=== PATIENT | male | born 1950 | race Caucasian/White ===

== ENCOUNTER 2019-03-11 13:27 | Emergency (ER) | payer MEDICARE, MEDICAID ==
[2019-03-11 13:45] VITALS: BP 145/82
[2019-03-11] MEDS ORDERED: Al Hydrox/Mg Hydrox/Simet LIQ* 30 ML UDC PO ONE (13:55)
--- NOTE | 2019-03-11 13:57 | UC ---
Throat Pain/Nasal Terrence HPI - HPI Summary HPI Summary: patient reports ST for 3-4 days. hurts to swallow but is not choking on food. pain is worse at night when he lies down, coughing makes it worse as well he has tried no meds thus far for ST - History of Current Complaint Chief Complaint: UCGeneralIllness Stated Complaint: ST/SOB Time Seen by Provider: 03/11/19 13:34 Hx Obtained From: Patient Onset/Duration: Gradual Onset Severity: Moderate Pain Intensity: 5 Cough: Productive - states he has chronic cough from COPD Associated Signs & Symptoms: Positive: Negative - Allergies/Home Medications Allergies/Adverse Reactions: Allergies Allergy/AdvReac Type Severity Reaction Status Date / Time No Known Allergies Allergy Verified 03/11/19 13:31 Home Medications: Home Medications Budesonide/Formote 160/4.5(NF) [Symbicort 160/4.5 (NF)] 03/11/19 [History Confirmed 03/11/19] PMH/Surg Hx/FS Hx/Imm Hx Previously Healthy: Yes Respiratory History: COPD - Surgical History Surgical History: Yes Surgery Procedure, Year, and Place: 2011 C4-C6 SURGERY, [id number] CYSTOSCOPY, [facility] TUNNEL SX - Family History Known Family History: Positive: Hypertension - Social History Occupation: Unemployed Alcohol Use: None Substance Use Type: None Smoking Status (MU): Former Smoker Type: Cigarettes - Immunization History Most Recent Influenza Vaccination: 2012 Most Recent Tetanus Shot: UNSURE Most Recent Pneumonia Vaccination: 2011 Review of Systems All Other Systems Reviewed And Are Negative: Yes Constitutional: Positive: Negative. Negative: Fever, Chills Skin: Positive: Negative. Negative: Rash ENT: Positive: Sore Throat. Negative: Ear Ache, Nasal Discharge Respiratory: Positive: Cough Cardiovascular: Positive: Negative. Negative: Chest Pain Gastrointestinal: Positive: Negative. Negative: Vomiting, Nausea Neurological: Positive: Negative. Negative: Headache Psychological: Positive: Negative Is Patient Immunocompromised?: No Physical Exam Triage Information Reviewed: Yes Appearance: Well-Appearing, No Pain Distress, Thin Vital Signs: Initial Vital Signs Temp 99.9 F 03/11/19 13:33 Pulse 110 03/11/19 13:33 Resp 20 03/11/19 13:33 BP 145/82 03/11/19 13:33 Pulse Ox 87 03/11/19 13:33 Vital Signs Reviewed: Yes Eye Exam: Normal Eyes: Positive: Conjunctiva Clear Neck exam: Normal Neck: Positive: Supple, Nontender, No Lymphadenopathy. Negative: Nuchal Rigidity Respiratory: Positive: Lungs clear, Other: - mildly decreased bialteral lung sounds - using portable 02 @ 2L NC Neurological Exam: Normal Neurological: Positive: Alert Psychological Exam: Normal Skin Exam: Normal Skin: Negative: Rashes Re-Evaluation - Re-Evaluation First Eval Re-Evaluation Time: 14:20 - patient states his ST and pain swallowing has resolved after maalox Change: Improved Throat Pain/Nasal Course/Dx - Course Course Of Treatment: patient able to swallow water when asked to do so, no perceptible difficulty, no choking states it burned " a little going down" - Differential Dx/Diagnosis Differential Diagnosis/HQI/PQRI: Foreign Body, Pharyngitis, Tonsillitis, URI, Other - GERD Provider Diagnosis: Esophagitis Discharge ED - Sign-Out/Discharge Documenting (check all that apply): Patient Departure All imaging exams completed and their final reports reviewed: No Studies - Discharge Plan Condition: Improved Disposition: HOME Patient Education Materials: Esophagitis (ED) Referrals: Sregey Martini MD [Primary Care Provider] - 2 Days (for recheck esophagitis and elevated blood pressure) Additional Instructions: eat a bland diet drink plenty of water use Maalox 1 tablespoon every 6 hours for 3-5 days report to emergency room if you cannot swallow food or fluids or are choking - Billing Disposition and Condition Condition: IMPROVED Disposition: Home - Attestation Statements Provider Attestation: Per institutional requirements, I have reviewed the chart, however, I was not consulted specifically or made aware of this patient by the midlevel provider. I did not personally evaluate, interact with , or disposition this patient.
== END 2019-03-11 14:47 | disposition home or self-care (01) ==
LOC: UCEAST 13:27
DX: K20.9 Esophagitis, unspecified (principal); J44.9 Chronic obstructive pulmonary disease, unspecified; Z87.891 Personal history of nicotine dependence
CPT/HCPCS: 99212; A9270-GY; G0463

== ENCOUNTER 2023-03-09 15:58 | Observation (INO) ==
[2023-03-09 16:54] LABS: ABS Lymphocytes 0.5 10^3/uL (1.0-4.8); ABS Monocytes 0.3 10^3/uL (0.0-1.1); ABS Neutrophils 2.5 10^3/uL (1.5-7.6); ABS Nucleated RBC 0.02 10^3/ul; Eosinophil % 0.4 %; Hematocrit 43.5 % (38-53); Hemoglobin 14.7 g/dL (13.2-16.3); Lymphocyte % 15.3 %; Mean Corpuscular Hemoglobin 31.1 pg (27-33); Mean Corpuscular Hgb Conc 33.7 g/dL (31-36); Mean Corpuscular Volume 92.3 fL (80-97); Mean Platelet Volume 7.7 fL (7.5-11.2); Nucleated Red Blood Cells % 0.5 /100 WBC (0.0-0.4); Platelet Count 142 10^3/uL (150-450); Red Blood Count 4.71 10^6/uL (4.06-5.63); Red Cell Distribution Width 14.8 % (12-17); White Blood Count 3.4 10^3/uL (3.6-10.2)
[2023-03-09 17:00] LABS: INR 1.17 (0.83-1.13)
[2023-03-09 17:16] LABS: High Sens Troponin Baseline 6 pg/mL (<20)
[2023-03-09 17:43] LABS: Albumin 3.1 g/dL (3.2-5.2); CO2 Carbon Dioxide 27 mmol/L (22-32); Calcium 7.6 mg/dL (8.6-10.3); Chloride 102 mmol/L (101-111); Sodium 136 mmol/L (135-145)
[2023-03-09 17:49] LABS: ALT 10 U/L (7-52); Albumin/Globulin Ratio 1.1 (1-3); Alkaline Phosphatase 64 U/L (35-149); Blood Urea Nitrogen 10 mg/dL (6-24); C Reactive Protein 6.89 mg/L (<8.01); Creatinine, Serum 0.82 mg/dL (0.67-1.17); Globulin 2.9 g/dL (2-4); Glucose 106 mg/dL (70-100); eGFR CKD-EPI 94.5 (>60)
[2023-03-09] MEDS ORDERED: Iohexol 350 (CONTRAST) 500 ML MDV IV ONE (17:54)
[2023-03-09 17:56] LABS: Anion Gap 7 mmol/L (2-16)
[2023-03-09 18:34] LABS: High Sensitivity Troponin 1 Hr 10 pg/mL (<20)
[2023-03-09 19:24] LABS: Potassium Redraw 4.2 mmol/L (3.5-5.0)
[2023-03-09 20:36] LABS: ABS Eosinophils 0.1 10^3/uL (0.0-0.5); ABS Lymphocytes 0.8 10^3/uL (1.0-4.8); ABS Monocytes 0.4 10^3/uL (0.0-1.1); ABS Neutrophils 2.3 10^3/uL (1.5-7.6); ABS Nucleated RBC 0.01 10^3/ul; Eosinophil % 1.8 %; Hematocrit 40.9 % (38-53); Hemoglobin 13.6 g/dL (13.2-16.3); Lymphocyte % 22.6 %; Mean Corpuscular Hemoglobin 30.8 pg (27-33); Mean Corpuscular Hgb Conc 33.3 g/dL (31-36); Mean Corpuscular Volume 92.6 fL (80-97); Mean Platelet Volume 7.2 fL (7.5-11.2); Nucleated Red Blood Cells % 0.3 /100 WBC (0.0-0.4); Platelet Count 132 10^3/uL (150-450); Red Blood Count 4.42 10^6/uL (4.06-5.63); Red Cell Distribution Width 14.7 % (12-17); White Blood Count 3.6 10^3/uL (3.6-10.2)
[2023-03-09] MEDS: Heparin DRIP 25,000 UNITS BAG 25,000 UNITS/500 ML BAG IV SCH (20:53)
[2023-03-09] MEDS ORDERED: Heparin 5000 UNITS/ML 1 mL VIAL IV SCH (21:00)
[2023-03-09 21:02] LABS: Creatinine, Serum 0.76 mg/dL (0.67-1.17); eGFR CKD-EPI 96.7 (>60)
[2023-03-09] MEDS ORDERED: Furosemide 40 mg/4 ml IV VIAL IV ONE (23:51)
[2023-03-10] MEDS ORDERED: Albuterol HFA INHALER 8 gm MDI INH PRN (00:27)
[2023-03-10 01:36] LABS: Erythrocyte Sed Rate 5 mm/Hr (0-19)
[2023-03-10 04:42] LABS: ABS Eosinophils 0.2 10^3/uL (0.0-0.5); ABS Lymphocytes 0.8 10^3/uL (1.0-4.8); ABS Monocytes 0.5 10^3/uL (0.0-1.1); ABS Nucleated RBC 0.02 10^3/ul; Eosinophil % 3.8 %; Hematocrit 44.4 % (38-53); Hemoglobin 15.3 g/dL (13.2-16.3); Lymphocyte % 17.8 %; Mean Corpuscular Hemoglobin 31.5 pg (27-33); Mean Corpuscular Hgb Conc 34.5 g/dL (31-36); Mean Corpuscular Volume 91.3 fL (80-97); Mean Platelet Volume 7.2 fL (7.5-11.2); Nucleated Red Blood Cells % 0.5 /100 WBC (0.0-0.4); Platelet Count 151 10^3/uL (150-450); Red Blood Count 4.86 10^6/uL (4.06-5.63); White Blood Count 4.5 10^3/uL (3.6-10.2)
[2023-03-10 04:56] LABS: Calcium 8.6 mg/dL (8.6-10.3); Creatinine, Serum 0.98 mg/dL (0.67-1.17); Potassium 3.5 mmol/L (3.5-5.0)
[2023-03-10] MEDS: Mometasone/Formoter 200/5 MDI INH SCH ×2 (08:47→19:39)
[2023-03-10] MEDS: SPIRIVA Respimat (tiotropium) 2.5 mcg/inh Inhaler INH SCH (12:01)
[2023-03-10] MEDS: Heparin DRIP 25,000 UNITS BAG 25,000 UNITS/500 ML BAG IV SCH (20:01)
[2023-03-11 06:32] LABS: ABS Eosinophils 0.2 10^3/uL (0.0-0.5); ABS Lymphocytes 0.7 10^3/uL (1.0-4.8); ABS Monocytes 0.5 10^3/uL (0.0-1.1); ABS Neutrophils 2.7 10^3/uL (1.5-7.6); ABS Nucleated RBC 0.01 10^3/ul; Eosinophil % 5.2 %; Hematocrit 42.2 % (38-53); Hemoglobin 14.5 g/dL (13.2-16.3); Lymphocyte % 17.3 %; Mean Corpuscular Hemoglobin 31.6 pg (27-33); Mean Corpuscular Hgb Conc 34.4 g/dL (31-36); Mean Corpuscular Volume 91.8 fL (80-97); Mean Platelet Volume 7.3 fL (7.5-11.2); Nucleated Red Blood Cells % 0.3 /100 WBC (0.0-0.4); Platelet Count 141 10^3/uL (150-450); Red Cell Distribution Width 14.9 % (12-17); White Blood Count 4.1 10^3/uL (3.6-10.2)
[2023-03-11 07:00] LABS: Creatinine, Serum 0.9 mg/dL (0.67-1.17); eGFR CKD-EPI 91.9 (>60)
[2023-03-11] MEDS: SPIRIVA Respimat (tiotropium) 2.5 mcg/inh Inhaler INH SCH (07:27)
[2023-03-11] MEDS: Mometasone/Formoter 200/5 MDI INH SCH ×2 (07:27→19:14)
[2023-03-12 06:16] LABS: ABS Eosinophils 0.2 10^3/uL (0.0-0.5); ABS Lymphocytes 0.7 10^3/uL (1.0-4.8); ABS Monocytes 0.4 10^3/uL (0.0-1.1); ABS Neutrophils 2.2 10^3/uL (1.5-7.6); ABS Nucleated RBC 0.02 10^3/ul; Eosinophil % 5.3 %; Hematocrit 41.6 % (38-53); Hemoglobin 14.3 g/dL (13.2-16.3); Lymphocyte % 19.4 %; Mean Corpuscular Hemoglobin 31.3 pg (27-33); Mean Corpuscular Hgb Conc 34.3 g/dL (31-36); Mean Corpuscular Volume 91.3 fL (80-97); Mean Platelet Volume 7.2 fL (7.5-11.2); Nucleated Red Blood Cells % 0.6 /100 WBC (0.0-0.4); Platelet Count 131 10^3/uL (150-450); Red Blood Count 4.56 10^6/uL (4.06-5.63); Red Cell Distribution Width 14.6 % (12-17); White Blood Count 3.5 10^3/uL (3.6-10.2)
[2023-03-12 06:32] LABS: Calcium 8.7 mg/dL (8.6-10.3); Creatinine, Serum 0.91 mg/dL (0.67-1.17); Magnesium 2.1 mg/dL (1.9-2.7); Potassium 4.3 mmol/L (3.5-5.0); eGFR CKD-EPI 90.7 (>60)
[2023-03-12] MEDS: SPIRIVA Respimat (tiotropium) 2.5 mcg/inh Inhaler INH SCH (07:30)
[2023-03-12] MEDS: Mometasone/Formoter 200/5 MDI INH SCH (07:30)
[2023-03-12 09:33] VITALS: BP 111/66
[2023-03-12] MEDS ORDERED: Albuterol/Ipratropium NEB.SOL (2.5/0.5 MG) 3 ML NEB.SOLN INH ONE (11:19)
== END 2023-03-12 13:35 | disposition home or self-care (01) ==
LOC: ED 15:58 → EDHOLD 15:58 → SUATTDRO 20:51 → MED 03-10 14:56
PROVIDERS: ADMIT Student in an Organized Health Care Education/Training Program; ATTEND Internal Medicine

== ENCOUNTER 2023-03-22 16:57 | Inpatient (IN) ==
[2023-03-22 17:25] LABS: Rapid Strep Molecular Negative (Negative)
[2023-03-22 20:42] LABS: ABS Lymphocytes 0.6 10^3/uL (1.0-4.8); ABS Monocytes 0.6 10^3/uL (0.0-1.1); ABS Neutrophils 8.4 10^3/uL (1.5-7.6); ABS Nucleated RBC 0.01 10^3/ul; Hematocrit 47.8 % (38-53); Hemoglobin 16.1 g/dL (13.2-16.3); Lymphocyte % 6.5 %; Mean Corpuscular Hemoglobin 31.4 pg (27-33); Mean Corpuscular Hgb Conc 33.7 g/dL (31-36); Mean Corpuscular Volume 93.3 fL (80-97); Mean Platelet Volume 7.8 fL (7.5-11.2); Nucleated Red Blood Cells % 0.1 /100 WBC (0.0-0.4); Platelet Count 155 10^3/uL (150-450); Red Blood Count 5.13 10^6/uL (4.06-5.63); Red Cell Distribution Width 15.1 % (12-17); White Blood Count 9.6 10^3/uL (3.6-10.2)
[2023-03-22 20:58] LABS: Albumin 3.5 g/dL (3.2-5.2); Calcium 8.8 mg/dL (8.6-10.3); Potassium 4.1 mmol/L (3.5-5.0); Total Bilirubin 1.2 mg/dL (0.2-1.0)
[2023-03-22 21:03] LABS: INR 1.9 (0.83-1.13)
[2023-03-22 21:04] LABS: Albumin/Globulin Ratio 0.9 (1-3); C Reactive Protein 113.47 mg/L (<8.01); Creatinine, Serum 0.96 mg/dL (0.67-1.17); Globulin 3.8 g/dL (2-4); Total Protein 7.3 g/dL (6.4-8.9)
[2023-03-22 23:32] LABS: High Sensitivity Troponin 1 Hr 11 pg/mL (<20)
[2023-03-23] MEDS ORDERED: Lactated Ringers 1000 ml BAG 1,000 ML IV ONE ×2 (00:11→12:38)
[2023-03-23] MEDS ORDERED: Iohexol 300 (CONTRAST) 10 ML SDV IV ONE (03:18)
[2023-03-23] MEDS ORDERED: Vancomycin 1,000 MG in NS 0.9% 250 ml 250 ML IVPB ONE (04:53)
[2023-03-23] MEDS ORDERED: Piperacillin/Tazobac 3.375 BAG 3.375 GM/100 ML BAG IV ONE (04:53)
[2023-03-23] MEDS ORDERED: Zosyn per Pharmacy NOTE FOLLOW UP SCH (12:00)
[2023-03-23] MEDS ORDERED: Acetaminophen IV 1 GM/100ML 1,000 MG/100 ML BAG IV PRN (12:36)
[2023-03-23] MEDS ORDERED: Polyethylene Glycol 3350 17 GM PACKET PO PRN (12:37)
[2023-03-23] MEDS ORDERED: ZOSYN 3.375 GM Q8H per EXTENDED INFUSION IV SCH (13:00)
[2023-03-23] MEDS ORDERED: Azithromycin 500 mg/250 ml NS 500 MG/250 ML BAG IVPB SCH (14:30)
[2023-03-23] MEDS: Mometasone/Formoter 200/5 MDI INH SCH (19:16)
[2023-03-23] MEDS: SPIRIVA Respimat (tiotropium) 2.5 mcg/inh Inhaler INH SCH (19:17)
[2023-03-23] MEDS ORDERED: Enoxaparin 60 MG/0.6 ML SYR SUBCUT ONE (21:45)
[2023-03-24] MEDS: ZOSYN 3.375 GM Q8H per EXTENDED INFUSION IV SCH ×3 (01:51→17:15)
[2023-03-24 06:05] LABS: ABS Lymphocytes 0.7 10^3/uL (1.0-4.8); ABS Monocytes 0.6 10^3/uL (0.0-1.1); ABS Neutrophils 8.1 10^3/uL (1.5-7.6); ABS Nucleated RBC 0.01 10^3/ul; Eosinophil % 0.1 %; Hematocrit 43.8 % (38-53); Hemoglobin 14.8 g/dL (13.2-16.3); Lymphocyte % 7.2 %; Mean Corpuscular Hemoglobin 31.6 pg (27-33); Mean Corpuscular Hgb Conc 33.8 g/dL (31-36); Mean Corpuscular Volume 93.4 fL (80-97); Mean Platelet Volume 8.1 fL (7.5-11.2); Nucleated Red Blood Cells % 0.1 /100 WBC (0.0-0.4); Platelet Count 114 10^3/uL (150-450); Red Blood Count 4.69 10^6/uL (4.06-5.63); Red Cell Distribution Width 14.7 % (12-17); White Blood Count 9.4 10^3/uL (3.6-10.2)
[2023-03-24 06:21] LABS: Calcium 8.3 mg/dL (8.6-10.3); Creatinine, Serum 0.78 mg/dL (0.67-1.17); Magnesium 2.1 mg/dL (1.9-2.7); eGFR CKD-EPI 95.9 (>60)
[2023-03-24] MEDS: Mometasone/Formoter 200/5 MDI INH SCH ×2 (07:32→21:31)
[2023-03-24] MEDS: SPIRIVA Respimat (tiotropium) 2.5 mcg/inh Inhaler INH SCH (07:32)
[2023-03-24] MEDS: Enoxaparin 60 MG/0.6 ML SYR SUBCUT SCH ×2 (11:59→22:11)
[2023-03-24] MEDS: Azithromycin 500 mg/250 ml NS 500 MG/250 ML BAG IVPB SCH (17:15)
[2023-03-24] MEDS: Lactated Ringers 1000 ml BAG 1,000 ML IV SCH (22:05)
[2023-03-25] MEDS: ZOSYN 3.375 GM Q8H per EXTENDED INFUSION IV SCH ×3 (01:45→16:42)
[2023-03-25] MEDS: Lactated Ringers 1000 ml BAG 1,000 ML IV SCH ×2 (08:12→17:51)
[2023-03-25] MEDS: SPIRIVA Respimat (tiotropium) 2.5 mcg/inh Inhaler INH SCH (08:21)
[2023-03-25] MEDS: Mometasone/Formoter 200/5 MDI INH SCH ×2 (08:21→19:15)
[2023-03-25] MEDS: Enoxaparin 60 MG/0.6 ML SYR SUBCUT SCH ×2 (11:39→21:43)
[2023-03-25] MEDS: Azithromycin 500 mg/250 ml NS 500 MG/250 ML BAG IVPB SCH (17:53)
[2023-03-26] MEDS: ZOSYN 3.375 GM Q8H per EXTENDED INFUSION IV SCH ×3 (01:13→16:42)
[2023-03-26] MEDS: Lactated Ringers 1000 ml BAG 1,000 ML IV SCH ×2 (04:55→14:14)
[2023-03-26 06:54] LABS: ABS Lymphocytes 0.6 10^3/uL (1.0-4.8); ABS Monocytes 0.3 10^3/uL (0.0-1.1); ABS Neutrophils 3.6 10^3/uL (1.5-7.6); ABS Nucleated RBC 0.02 10^3/ul; Eosinophil % 0.6 %; Hemoglobin 15.1 g/dL (13.2-16.3); Lymphocyte % 12.8 %; Mean Corpuscular Hemoglobin 31.4 pg (27-33); Mean Corpuscular Hgb Conc 33.5 g/dL (31-36); Mean Corpuscular Volume 93.6 fL (80-97); Mean Platelet Volume 8.4 fL (7.5-11.2); Nucleated Red Blood Cells % 0.4 /100 WBC (0.0-0.4); Platelet Count 116 10^3/uL (150-450); Red Blood Count 4.81 10^6/uL (4.06-5.63); Red Cell Distribution Width 14.5 % (12-17); White Blood Count 4.6 10^3/uL (3.6-10.2)
[2023-03-26 07:10] LABS: Calcium 8.1 mg/dL (8.6-10.3); Creatinine, Serum 0.76 mg/dL (0.67-1.17); Potassium 3.7 mmol/L (3.5-5.0); eGFR CKD-EPI 96.7 (>60)
[2023-03-26] MEDS: Mometasone/Formoter 200/5 MDI INH SCH ×2 (07:36→19:08)
[2023-03-26] MEDS: SPIRIVA Respimat (tiotropium) 2.5 mcg/inh Inhaler INH SCH (07:37)
[2023-03-26] MEDS: Enoxaparin 60 MG/0.6 ML SYR SUBCUT SCH ×2 (08:00→21:31)
[2023-03-27] MEDS: Lactated Ringers 1000 ml BAG 1,000 ML IV SCH ×2 (01:02→11:11)
[2023-03-27] MEDS: ZOSYN 3.375 GM Q8H per EXTENDED INFUSION IV SCH ×3 (01:04→17:03)
[2023-03-27] MEDS: Mometasone/Formoter 200/5 MDI INH SCH ×2 (08:00→18:48)
[2023-03-27] MEDS: SPIRIVA Respimat (tiotropium) 2.5 mcg/inh Inhaler INH SCH (08:01)
[2023-03-27 08:43] LABS: ALT 8 U/L (7-52); AST 19 U/L (13-39); Albumin 2.8 g/dL (3.2-5.2); Albumin/Globulin Ratio 0.8 (1-3); Alkaline Phosphatase 69 U/L (35-149); Anion Gap 7 mmol/L (2-16); Blood Urea Nitrogen 16 mg/dL (6-24); CO2 Carbon Dioxide 34 mmol/L (22-32); Calcium 7.8 mg/dL (8.6-10.3); Chloride 101 mmol/L (101-111); Cholesterol 109 mg/dL; Globulin 3.3 g/dL (2-4); Glucose 77 mg/dL (70-100); Magnesium 1.9 mg/dL (1.9-2.7); Phosphorus 2.5 mg/dL (2.5-5.0); Potassium 3.9 mmol/L (3.5-5.0); Sodium 142 mmol/L (135-145); Total Protein 6.1 g/dL (6.4-8.9); Triglycerides 107 mg/dL; eGFR CKD-EPI 99.1 (>60)
[2023-03-27] MEDS: Enoxaparin 60 MG/0.6 ML SYR SUBCUT SCH ×2 (09:10→21:40)
[2023-03-27 09:27] LABS: Prealbumin < 3 mg/dL (18-38)
[2023-03-27 09:37] LABS: ABS Lymphocytes 0.7 10^3/uL (1.0-4.8); ABS Monocytes 0.3 10^3/uL (0.0-1.1); ABS Nucleated RBC 0.01 10^3/ul; Eosinophil % 0.6 %; Hematocrit 45.3 % (38-53); Hemoglobin 15.2 g/dL (13.2-16.3); Lymphocyte % 16.7 %; Mean Corpuscular Hemoglobin 31.4 pg (27-33); Mean Corpuscular Hgb Conc 33.7 g/dL (31-36); Mean Corpuscular Volume 93.2 fL (80-97); Mean Platelet Volume 8.6 fL (7.5-11.2); Nucleated Red Blood Cells % 0.1 /100 WBC (0.0-0.4); Platelet Count 117 10^3/uL (150-450); Red Blood Count 4.86 10^6/uL (4.06-5.63); Red Cell Distribution Width 14.4 % (12-17)
[2023-03-27] MEDS ORDERED: PPN (PERIPHERAL) 24 HR with D10W 1000 ml BAG 1,000 ML, Amino Acid Infusion 10% 850 ML, ... IV SCH (17:00)
[2023-03-28] MEDS: ZOSYN 3.375 GM Q8H per EXTENDED INFUSION IV SCH ×2 (00:56→13:27)
[2023-03-28 06:15] LABS: Mean Corpuscular Hemoglobin 31.1 pg (27-33); Mean Corpuscular Hgb Conc 34.2 g/dL (31-36); Mean Corpuscular Volume 91.1 fL (80-97); Red Blood Count 4.82 10^6/uL (4.06-5.63); Red Cell Distribution Width 14.6 % (12-17); White Blood Count 3.7 10^3/uL (3.6-10.2)
[2023-03-28 06:29] LABS: ABS Eosinophils 0.1 10^3/uL (0.0-0.5); ABS Lymphocytes 0.6 10^3/uL (1.0-4.8); ABS Monocytes 0.3 10^3/uL (0.0-1.1); ABS Neutrophils 2.8 10^3/uL (1.5-7.6); ABS Nucleated RBC 0.01 10^3/ul; ALT 10 U/L (7-52); AST 17 U/L (13-39); Albumin 2.7 g/dL (3.2-5.2); Albumin/Globulin Ratio 0.8 (1-3); Alkaline Phosphatase 61 U/L (35-149); Blood Urea Nitrogen 17 mg/dL (6-24); Calcium 8.2 mg/dL (8.6-10.3); Chloride 98 mmol/L (101-111); Cholesterol 108 mg/dL; Creatinine, Serum 0.66 mg/dL (0.67-1.17); Globulin 3.3 g/dL (2-4); Glucose 121 mg/dL (70-100); Lymphocyte % 15.6 %; Mean Platelet Volume 7.9 fL (7.5-11.2); Nucleated Red Blood Cells % 0.3 /100 WBC (0.0-0.4); Platelet Count 86 10^3/uL (150-450); Potassium 3.3 mmol/L (3.5-5.0); Sodium 139 mmol/L (135-145); Triglycerides 139 mg/dL; eGFR CKD-EPI 100.9 (>60)
[2023-03-28 06:32] LABS: CO2 Carbon Dioxide 41 mmol/L (22-32)
[2023-03-28 06:38] LABS: Prealbumin < 3 mg/dL (18-38)
[2023-03-28] MEDS: Mometasone/Formoter 200/5 MDI INH SCH ×2 (07:22→20:10)
[2023-03-28] MEDS: SPIRIVA Respimat (tiotropium) 2.5 mcg/inh Inhaler INH SCH (07:23)
[2023-03-28] MEDS ORDERED: PPN (PERIPHERAL) 24 HR with D10W 1000 ml BAG 1,000 ML, Amino Acid Infusion 10% 850 ML, ... IV SCH (17:00)
[2023-03-28] MEDS ORDERED: Dextrose 50% Syringe 50 ml 25 GM/50 ML SYRINGE IV PUSH PRN (17:26)
[2023-03-28] MEDS: Enoxaparin 60 MG/0.6 ML SYR SUBCUT SCH ×2 (17:39→22:36)
[2023-03-28] MEDS: cefTRIAXone 1 gm/50 mL D5W 1 GM/50 ML BAG IV SCH (22:35)
[2023-03-29 06:28] LABS: ABS Eosinophils 0.1 10^3/uL (0.0-0.5); ABS Lymphocytes 0.5 10^3/uL (1.0-4.8); ABS Monocytes 0.3 10^3/uL (0.0-1.1); ABS Neutrophils 3.2 10^3/uL (1.5-7.6); ABS Nucleated RBC 0.02 10^3/ul; Eosinophil % 2.2 %; Hematocrit 43.6 % (38-53); Lymphocyte % 11.4 %; Mean Corpuscular Hemoglobin 31.3 pg (27-33); Mean Corpuscular Hgb Conc 34.4 g/dL (31-36); Mean Corpuscular Volume 90.9 fL (80-97); Mean Platelet Volume 8.2 fL (7.5-11.2); Nucleated Red Blood Cells % 0.4 /100 WBC (0.0-0.4); Platelet Count 70 10^3/uL (150-450); Red Cell Distribution Width 13.8 % (12-17); White Blood Count 4.1 10^3/uL (3.6-10.2)
[2023-03-29 06:42] LABS: Albumin 2.7 g/dL (3.2-5.2); Albumin/Globulin Ratio 0.9 (1-3); Calcium 7.9 mg/dL (8.6-10.3); Creatinine, Serum 0.56 mg/dL (0.67-1.17); Globulin 3.1 g/dL (2-4); Magnesium 1.9 mg/dL (1.9-2.7); Phosphorus 1.7 mg/dL (2.5-5.0); Potassium 3.5 mmol/L (3.5-5.0); Total Bilirubin 0.5 mg/dL (0.2-1.0); Total Protein 5.8 g/dL (6.4-8.9)
[2023-03-29] MEDS: SPIRIVA Respimat (tiotropium) 2.5 mcg/inh Inhaler INH SCH (08:45)
[2023-03-29] MEDS: Mometasone/Formoter 200/5 MDI INH SCH ×2 (08:46→19:49)
[2023-03-29] MEDS: Enoxaparin 60 MG/0.6 ML SYR SUBCUT SCH (10:41)
[2023-03-29] MEDS ORDERED: D10W IV SCH (17:00)
[2023-03-29] MEDS ORDERED: AMINO ACID INFUSION IV SCH (17:00)
[2023-03-29] MEDS ORDERED: [UNRECOGNIZED DRUG - OTHER] IV SCH (17:00)
[2023-03-29] MEDS ORDERED: PPN IV SCH (17:00)
[2023-03-29] MEDS ORDERED: Potassium Phosphate IV 5 MMOL in NS 0.9% 250 ml 250 ML IVPB ONE (18:23)
[2023-03-29] MEDS: cefTRIAXone 1 gm/50 mL D5W 1 GM/50 ML BAG IV SCH (23:29)
[2023-03-30 06:47] LABS: High Sensitivity Troponin 1 Hr 12 pg/mL (<20)
[2023-03-30 07:09] LABS: Albumin 2.7 g/dL (3.2-5.2); Calcium 7.6 mg/dL (8.6-10.3); Creatinine, Serum 0.61 mg/dL (0.67-1.17); Globulin 2.7 g/dL (2-4); Magnesium 1.9 mg/dL (1.9-2.7); Phosphorus 2.3 mg/dL (2.5-5.0); Potassium 3.5 mmol/L (3.5-5.0); Total Bilirubin 0.7 mg/dL (0.2-1.0); Total Protein 5.4 g/dL (6.4-8.9); eGFR CKD-EPI 103.3 (>60)
[2023-03-30] MEDS: SPIRIVA Respimat (tiotropium) 2.5 mcg/inh Inhaler INH SCH (07:44)
[2023-03-30] MEDS: Mometasone/Formoter 200/5 MDI INH SCH ×2 (07:44→19:55)
[2023-03-30 07:51] LABS: ABS Eosinophils 0.1 10^3/uL (0.0-0.5); ABS Lymphocytes 0.6 10^3/uL (1.0-4.8); ABS Monocytes 0.4 10^3/uL (0.0-1.1); ABS Neutrophils 2.9 10^3/uL (1.5-7.6); ABS Nucleated RBC 0.01 10^3/ul; Eosinophil % 2.4 %; Hematocrit 45.6 % (38-53); Hemoglobin 15.5 g/dL (13.2-16.3); Lymphocyte % 15.8 %; Mean Corpuscular Volume 91.2 fL (80-97); Mean Platelet Volume 8.9 fL (7.5-11.2); Nucleated Red Blood Cells % 0.3 /100 WBC (0.0-0.4); Platelet Count 84 10^3/uL (150-450); Red Cell Distribution Width 14.3 % (12-17)
[2023-03-30 13:12] VITALS: BP 121/70
[2023-03-30] MEDS ORDERED: Morphine ORAL CONCENTRATE 5 MG/0.25 ML ORAL.SYRIN SL PRN (15:46)
[2023-03-31] MEDS: SPIRIVA Respimat (tiotropium) 2.5 mcg/inh Inhaler INH SCH (07:44)
[2023-03-31] MEDS: Mometasone/Formoter 200/5 MDI INH SCH ×2 (07:45→19:33)
[2023-04-01 00:14] LABS: HIT ELISA 0.662 OD (<0.400); Heparin PF4 Ab Inhibition 100 %; Heparin PF4 Antibody Interp Positive (Negative)
[2023-04-01] MEDS: Mometasone/Formoter 200/5 MDI INH SCH (10:58)
[2023-04-01] MEDS: SPIRIVA Respimat (tiotropium) 2.5 mcg/inh Inhaler INH SCH (10:58)
== END 2023-04-01 14:10 | DRG 177 ==
LOC: EDHOLD 16:57 → ED 16:57 → SUATTDRO 03-23 11:08 → MED 03-23 13:52 → SUATTDRO 03-24 16:00
PROVIDERS: ADMIT Student in an Organized Health Care Education/Training Program; ATTEND Internal Medicine